=== PATIENT | female | born 1985 | race Caucasian/White ===

== ENCOUNTER → 2016-12-31 | Outpatient (CLI) | payer OTHER ==
[2016-12-31 13:20] LABS: CH 32.2; CHCM 33.5; HCT 37.7 % (34.0-46.0); HDW 2.22; HGB 12.1 gm/dL (11.4-16.0); MCH 31.1 pg (25.0-35.0); MCHC 32.2 g/dL (31.0-37.0); MCV 96.6 fL (80.0-100.0); Mean Platelet Volume 7.6; RBC 3.91 m/uL (3.80-5.40); RDW 13.9 % (11.5-15.5); WBC 5.5 k/uL (3.8-10.6)
[2016-12-31 14:01] LABS: Glucose 79 mg/dL (74-99); Non-African American GFR(MDRD) >60 (>60 ml/min/1.73 sqM)
[2016-12-31 14:15] LABS: Hepatitis B Surface Ag Index 0.06
[2016-12-31 18:59] LABS: Treponemal Ab Non-Reactive (Non-Reactive)
== END | disposition home or self-care (01) ==
LOC: LABWHC1 12:37
PROVIDERS: ATTEND Obstetrics & Gynecology
DX: O26.811 Pregnancy related exhaustion and fatigue, first trimester (principal); Z3A.00 Weeks of gestation of pregnancy not specified
CPT/HCPCS: 36415; 82565; 82947; 85027; 86762; 86780; 86850; 86900; 86901; 87340; 87390

== ENCOUNTER 2017-07-19 12:43 | Inpatient (IN) | payer BC, OTHER ==
[2017-07-19] MEDS ORDERED: OXYTOCIN 10 UNIT/ML 1 ML VIAL IM PRN (13:03)
[2017-07-19] MEDS ORDERED: AMPICILLIN 2,000 MG in SODIUM CHLORIDE 0.9% 100 ML IVPB STA (13:03)
[2017-07-19] MEDS ORDERED: CARBOPROST TROMETHAMINE 250 MCG/ML 1 ML AMP IM PRN (13:03)
[2017-07-19] MEDS ORDERED: METHYLERGONOVINE 0.2 MG/ML 1 ML AMP IM PRN (13:03)
[2017-07-19] MEDS ORDERED: LIDOCAINE 1% (PF) 10 MG/ML (30 ML SDV) SQ PRN (13:03)
[2017-07-19] MEDS ORDERED: TERBUTALINE 1 MG/ML VIAL SQ PRN (13:03)
[2017-07-19] MEDS ORDERED: OXYTOCIN 20 UNITS/1000 ML NS 1,000 ML IV SCH ×2 (13:15→19:00)
[2017-07-19 13:35] VITALS: BMI 36.8
[2017-07-19] MEDS: LACTATED RINGERS 1,000 ML IV SCH ×2 (13:36→16:39)
[2017-07-19 13:46] LABS: Basophils % (A) 0 %; Eosinophils # (A) 0.1 k/uL (0-0.7); Eosinophils % (A) 1 %; HCT 33.6 % (34.0-46.0); HGB 11.3 gm/dL (11.4-16.0); Lymphocytes # (A) 1.6 k/uL (1.0-4.8); Lymphocytes % (A) 19 %; MCH 30.1 pg (25.0-35.0); MCHC 33.7 g/dL (31.0-37.0); MCV 89.3 fL (80.0-100.0); Mean Platelet Volume 8.6; Monocytes # (A) 0.5 k/uL (0-1.0); Monocytes % (A) 6 %; Neutrophils # (A) 6.1 k/uL (1.3-7.7); Neutrophils % (A) 73 %; Platelet Count 220 k/uL (150-450); RBC 3.76 m/uL (3.80-5.40); RDW 13.3 % (11.5-15.5); WBC 8.4 k/uL (3.8-10.6)
[2017-07-19] MEDS ORDERED: SODIUM CHLORIDE 0.9% 100 ML BAG ONE (16:12)
[2017-07-19] MEDS ORDERED: BUPIVACAINE (PF) 0.25% 30 ML VIAL ONE (16:12)
[2017-07-19] MEDS ORDERED: fentaNYL (PF) 50 MCG/ML 5 ML AMP ONE (16:12)
[2017-07-19] MEDS ORDERED: AMPICILLIN 1,000 MG in SODIUM CHLORIDE 0.9% 50 ML IVPB SCH (17:00)
[2017-07-19] MEDS ORDERED: diphenhydrAMINE 25 MG CAP PO PRN (18:57)
[2017-07-19] MEDS ORDERED: diphenhydrAMINE 50 MG CAP PO PRN (18:57)
[2017-07-19] MEDS ORDERED: HYDROcodone/APAP 7.5-325MG 1 EACH TAB PO PRN (18:57)
[2017-07-19] MEDS ORDERED: ZOLPIDEM 5 MG TAB PO PRN (18:57)
[2017-07-19] MEDS ORDERED: ACETAMINOPHEN TAB 325 MG TAB PO PRN (18:57)
[2017-07-19] MEDS ORDERED: WITCH HAZEL 1 EACH MED..PAD TOPICAL PRN (18:57)
[2017-07-19] MEDS ORDERED: LANOLIN CREAM 5 GM TUBE TOPICAL PRN (18:57)
[2017-07-19] MEDS ORDERED: BENZOCAINE/MENTHOL SPRAY 1 GM/SPRAY AEROSOL TOPICAL PRN (18:57)
[2017-07-19] MEDS ORDERED: diphenhydrAMINE 50 MG/ML 1 ML VIAL IVP PRN ×2 (18:57)
[2017-07-19] MEDS ORDERED: HYDROCORTISONE 2.5% RECTAL CREAM 30 GM TUBE RECTAL PRN (18:57)
[2017-07-19] MEDS ORDERED: SIMETHICONE 80 MG CHEWABLE PO PRN (18:57)
[2017-07-19] MEDS: IBUPROFEN 600 MG TAB PO PRN (19:33)
[2017-07-19] MEDS: SENNOSIDES-DOCUSATE SODIUM 1 EACH TAB PO SCH (21:49)
[2017-07-20] MEDS: IBUPROFEN 600 MG TAB PO PRN ×3 (06:27→20:28)
[2017-07-20] MEDS: SENNOSIDES-DOCUSATE SODIUM 1 EACH TAB PO SCH ×2 (08:03→20:29)
--- NOTE | 2017-07-20 08:09 | P.HPOB ---
History of Present Illness H&P Date: 07/19/17 Chief Complaint: SROM 32 year old presents at 38 weeks 6 days with SROM at 1230pm. Her cervix is 3/80/-2 and she is not bernardo. heart tones 130-135 with moderate variability and reactive. Review of Systems All systems: negative Constitutional: Denies chills, Denies fever Eyes: denies blurred vision, denies pain Ears, nose, mouth and throat: Denies headache, Denies sore throat Cardiovascular: Denies chest pain, Denies shortness of breath Respiratory: Denies cough Gastrointestinal: Denies abdominal pain, Denies diarrhea, Denies nausea, Denies vomiting Genitourinary: Denies dysuria, Denies hematuria Musculoskeletal: Denies myalgias Integumentary: Denies pruritus, Denies rash Neurological: Denies numbness, Denies weakness Psychiatric: Denies anxiety, Denies depression Endocrine: Denies fatigue, Denies weight change Past Medical History Past Medical History: No Reported History Additional Past Medical History / Comment(s): OB history: This patient's first and she's had care with il since 10 weeks gestation. Blood type O+, antibodies negative, rubella immune, treponema antibody negative, HIV nonreactive, hepatitis B negative. The baby did have an echogenic intracardiac focus but had a normal echocardiogram. Abnormal 1 hour but normal 3 hour GTT. GBS positive. History of Any Multi-Drug Resistant Organisms: None Reported Past Surgical History: No Surgical Hx Reported Past Anesthesia/Blood Transfusion Reactions: No Reported Reaction Past Psychological History: Anxiety Smoking Status: Former smoker Past Alcohol Use History: Occasional Additional Past Alcohol Use History / Comment(s): prior to Past Drug Use History: None Reported - Past Family History Mother Family Medical History: Hypertension Medications and Allergies Home Medications Medication Instructions Recorded Confirmed Type Pnv No.95/Ferrous Fum/Folic AC 1 each PO DAILY 07/19/17 07/19/17 History [ Multivitamin Tablet] Ranitidine HCl [Zantac] 75 mg PO AC-BID 07/19/17 07/19/17 History Allergies Allergy/AdvReac Type Severity Reaction Status Date / Time No Known Allergies Allergy Verified 07/19/17 12:58 Exam Osteopathic Statement: *. No significant issues noted on an osteopathic structural exam other than those noted in the History and Physical/Consult. - Vital Signs Vital signs: Vital Signs Temp Pulse Resp BP 07/20/17 04:00 97.8 F 73 16 133/73 07/20/17 00:00 98.2 F 86 16 110/67 07/19/17 21:05 79 16 119/66 07/19/17 20:35 78 16 113/59 07/19/17 20:05 78 16 122/63 07/19/17 19:50 76 16 121/62 07/19/17 19:35 77 16 120/60 07/19/17 19:20 97.2 F L 80 16 125/62 07/19/17 19:05 80 18 135/62 07/19/17 13:25 98.1 F 70 18 136/80 Intake and Output 07/19/17 07/20/17 07/20/17 22:59 06:59 14:59 Other: # Voids 1 Heart: Regular rate and rhythm Lungs: Clear to auscultation bilaterally Abdomen: Soft, nontender Extremities: Negative Homans sign Results Result Diagrams: 07/19/17 13:35 Abnormal Lab Results - Last 24 Hours (Table) 07/19/17 Range/Units 13:35 RBC 3.76 L (3.80-5.40) m/uL Hgb 11.3 L (11.4-16.0) gm/dL Hct 33.6 L (34.0-46.0) % Assessment and Plan (1) Spontaneous rupture of membranes Current Visit: Yes Status: Acute Code(s): QVS5355 - SNOMED Code(s): 909893034 (2) Positive GBS test Current Visit: Yes Status: Acute Code(s): B95.1 - STREPTOCOCCUS, GROUP B, CAUSING DISEASES [facility]SD [facility] SNOMED Code(s): 0851659600787 Plan: 1. Admit to family place 2. Ampicillin for GBS prophylaxis 3. Pitocin augmentation 4. Anticipate normal vaginal delivery
--- NOTE | 2017-07-20 08:12 | P.PROBDLV ---
Vaginal Delivery Note - . Vaginal Delivery Note: 32-year-old presented at 38 weeks and 6 days with spontaneous rupture membranes at 12:30 PM, clear fluid noted. When she presented to labor and delivery her cervix was 3 cm dilated, 80% effaced, and -2 station. She is not bernardo. heart tones 130-135 with moderate variability and reactive. Ampicillin was started for GBS prophylaxis and Pitocin was started as well. When she was uncomfortable and making cervical change she did get an epidural. Her cervix is completely dilated at 1819. She pushed, brought the head to the perineum for several minutes but was unable to push past this, a small midline episiotomy was made in the head delivered over the perineum in OA position, anterior shoulder delivered gentle downward traction followed by posterior shoulder and rest of body at 1840. Nose and mouth bulb suctioned, cord clamped and cut, infant placed mother's abdomen. Apgars 7, 9, weight 7 lbs. 6 oz. Placenta delivered spontaneously, intact with three-vessel cord at 1842. Vagina , cervix, and perineum were inspected. Second-degree midline episiotomy was repaired with 2-0 and 3-0 Vicryl. Estimated blood loss 150 mL. Mother and baby in stable condition.
--- NOTE | 2017-07-20 08:13 | P.PNOBGVD ---
Subjective - Subjective Principal diagnosis: Status post vaginal delivery day #1 Interval history: Patient seen and examined. Denies nausea, vomiting, chest pain, shortness of breath or calf pain. Patient reports: Reports appetite normal, Reports voiding normally, Reports pain well controlled, Reports ambulating normally : doing well Objective - Latest Vital Signs Latest vital signs: Vital Signs Temp Pulse Resp BP 07/20/17 04:00 97.8 F 73 16 133/73 07/20/17 00:00 98.2 F 86 16 110/67 07/19/17 21:05 79 16 119/66 07/19/17 20:35 78 16 113/59 07/19/17 20:05 78 16 122/63 07/19/17 19:50 76 16 121/62 07/19/17 19:35 77 16 120/60 07/19/17 19:20 97.2 F L 80 16 125/62 07/19/17 19:05 80 18 135/62 07/19/17 13:25 98.1 F 70 18 136/80 Intake and Output 07/19/17 07/20/17 07/20/17 22:59 06:59 14:59 Other: # Voids 1 - Exam Lungs: bilateral: normal Chest: Normal S1, Normal S2 Extremities: Present: normal Abdomen: Present: normal appearance, soft Uterus: Present: normal, firm - Labs Labs: Abnormal Lab Results - Last 24 Hours (Table) 07/19/17 Range/Units 13:35 RBC 3.76 L (3.80-5.40) m/uL Hgb 11.3 L (11.4-16.0) gm/dL Hct 33.6 L (34.0-46.0) % Assessment and Plan (1) Spontaneous rupture of membranes Current Visit: Yes Status: Resolved Code(s): WLA8752 - SNOMED Code(s): 335199458 (2) Positive GBS test Current Visit: Yes Status: Resolved Code(s): B95.1 - STREPTOCOCCUS, GROUP B , CAUSING DISEASES CLASSD [facility] SNOMED Code(s): 3651839471293 (3) Normal vaginal delivery Current Visit: Yes Status: Acute Code(s): O80 - ENCOUNTER FOR FULL-TERM UNCOMPLICATED DELIVERY SNOMED Code(s): 08410390 Plan: 1. Continue care
[2017-07-21] MEDS: IBUPROFEN 600 MG TAB PO PRN ×2 (02:52→10:50)
[2017-07-21] MEDS: SENNOSIDES-DOCUSATE SODIUM 1 EACH TAB PO SCH (08:00)
[2017-07-21 08:19] VITALS: BP 136/81; PULSE 66; RESP 16; TEMP 98.5
--- NOTE | 2017-07-25 08:40 | P.DS ---
Providers Date of admission: 07/19/17 13:08 Expected date of discharge: 07/21/17 Attending physician: Suzi Harrison Primary care physician: Stated None - Discharge Diagnosis(es) (1) Normal vaginal delivery Status: Acute Hospital Course: Patient presented encased rupture membranes. She underwent Pitocin augmentation and did have antibiotics for GBS prophylaxis. She underwent a normal vaginal delivery. Her course was uncomplicated. She was discharged day #2 in stable condition to follow-up with me in 6 weeks. Patient Condition at Discharge: Good Plan - Discharge Summary New Discharge Prescriptions: New Ibuprofen [Motrin] 600 mg PO Q6HR PRN #30 tab PRN Reason: Mild Pain Or Fever >= 100.5 No Action Ranitidine HCl [Zantac] 75 mg PO AC-BID Pnv No.95/Ferrous Fum/Folic AC [ Multivitamin Tablet] 1 each PO DAILY Discharge Medication List Pnv No.95/Ferrous Fum/Folic AC [ Multivitamin Tablet] 1 each PO DAILY [History] Ranitidine HCl [Zantac] 75 mg PO AC-BID 07/19/17 [History] Ibuprofen [Motrin] 600 mg PO Q6HR PRN #30 tab 07/21/17 [Rx] Follow up Appointment(s)/Referral(s): Suzi Harrison DO [Doctor of Osteopathic Medicine] - 6 Weeks Discharge Disposition: HOME SELF-CARE
== END 2017-07-21 11:59 | disposition home or self-care (01) | DRG 775 ==
LOC: FBPOP 12:43 → 4FBP 13:08
PROVIDERS: ADMIT Obstetrics & Gynecology; ATTEND Obstetrics & Gynecology
PROC: 10E0XZZ Delivery of Products of Conception, External Approach (ICD-10-PCS; principal; 2017-07-19)
PROC: 0W8NXZZ Division of Female Perineum, External Approach (ICD-10-PCS; 2017-07-19)
DX: O99.824 Streptococcus B carrier state complicating childbirth (principal); O99.344 Other mental disorders complicating childbirth; F41.9 Anxiety disorder, unspecified; Z37.0 Single live birth; Z3A.38 38 weeks gestation of pregnancy; Z82.49 Family history of ischemic heart disease and other diseases of the circulatory system; Z87.891 Personal history of nicotine dependence; Z79.899 Other long term (current) drug therapy
CPT/HCPCS: 59025; 85025; 88307; 99213

== ENCOUNTER 2017-07-25 16:27 | Emergency (ER) | payer BC, OTHER ==
[2017-07-25 17:06] VITALS: RESP 18
--- NOTE | 2017-07-25 18:03 | ED ---
Extremity Problem HPI - General Chief complaint: Extremity Problem,Nontraumatic Stated complaint: Swollen feet & fever Time Seen by Provider: 07/25/17 17:40 Source: patient, RN notes reviewed Mode of arrival: ambulatory Limitations: no limitations - History of Present Illness Initial comments: This is a 32-year-old female who presents to the emergency department with chief complaint of bilateral ankle swelling. Patient states that she had a normal vaginal delivery this past Tuesday. She denies any or complications. She states that yesterday she developed a fever 101 and was shivering. She states that yesterday morning she developed bilateral lower extremity swelling that has worsened since then. She denies any calf tenderness. Denies any abnormal vaginal discharge. She does state that she does continue to have vaginal bleeding but this has decreased since delivery. Denies any pain. Denies shortness of breath or chest pain, abdominal pain, nausea or vomiting, diarrhea or constipation, dysuria or hematuria, dizziness. - Related Data Home Medications Medication Instructions Recorded Confirmed Pnv No.95/Ferrous Fum/Folic AC 1 each PO DAILY 07/19/17 07/25/17 [ Multivitamin Tablet] Acetaminophen Tab [Tylenol Tab] 1,000 mg PO Q6HR PRN 07/25/17 07/25/17 Escitalopram [Lexapro] 20 mg PO DAILY 07/25/17 07/25/17 Previous Rx's Medication Instructions Recorded Ibuprofen [Motrin] 600 mg PO Q6HR PRN #30 tab 07/21/17 Labetalol [Trandate] 100 mg PO BID #20 tablet 07/25/17 Allergies Allergy/AdvReac Type Severity Reaction Status Date / Time No Known Allergies Allergy Verified 07/25/17 17:53 Review of Systems ROS Statement: Those systems with pertinent positive or pertinent negative responses have been documented in the HPI. ROS Other: All systems not noted in ROS Statement are negative. Past Medical History Past Medical History: No Reported History Additional Past Medical History / Comment(s): OB history: Blood type O+, antibodies negative, rubella immune, treponema antibody negative, HIV nonreactive, hepatitis B negative. The baby did have an echogenic intracardiac focus but had a normal echocardiogram. Abnormal 1 hour but normal 3 hour GTT. GBS positive. History of Any Multi-Drug Resistant Organisms: None Reported Past Surgical History: No Surgical Hx Reported Past Anesthesia/Blood Transfusion Reactions: No Reported Reaction Past Psychological History: Anxiety Smoking Status: Former smoker Past Alcohol Use History: Occasional Past Drug Use History: None Reported - Past Family History Mother Family Medical History: Hypertension General Exam - General Exam Comments Initial Comments: General: Awake and alert, well-developed; in no apparent distress. HEENT: Head atraumatic, normocephalic. Pupils are equal, round and reactive to light. Extraocular movements intact. Oropharynx moist without erythema or exudate. Neck: Supple. Normal ROM. Cardiovascular: Regular rate and rhythm. No murmurs, rubs or gallops. Chest symmetrical. Respiratory: Lungs clear to auscultation bilaterally. No wheezes, rales or rhonchi. Normal respiratory effort with no use of accessory muscles. Abdomen: Soft, non-tender, non-distended. No rigidity, rebound or guarding. Normal bowel sounds in all 4 quadrants. Musculoskeletal: Normal ROM, no tenderness bilateral upper and lower extremities. No bilateral calf tenderness. There is 2+ pitting edema of right ankle and foot. 1+ pitting edema of left ankle and foot. No erythema, contusions. No tenderness. Skin: [place], warm and dry without rashes or lesions. Neurological: Alert and oriented x3. CN II-XII grossly intact. Speech is fluent and answers are appropriate. No focal neuro deficits. Psychiatric: Normal mood and affect. No overt signs of depression or anxiety noted. Limitations: no limitations Course Vital Signs 07/25/17 07/25/17 07/25/17 17:01 18:35 19:12 Temperature 98.1 F Pulse Rate 57 L 51 L 70 Respiratory 18 18 18 Rate Blood Pressure 153/81 161/89 160/83 O2 Sat by Pulse 98 96 98 Oximetry 07/25/17 20:29 Temperature 97.4 F L Pulse Rate 53 L Respiratory 18 Rate Blood Pressure 155/76 O2 Sat by Pulse 97 Oximetry - Reevaluation(s) Reevaluation #1: Case was discussed with attending physician, Dr. Sanchez. Troponin, BNP and chest x-ray are pending. Will be in contact with the patient's [employer], Dr. Harrison. 07/25/17 19:39 Medical Decision Making - Medical Decision Making This is a 32-year-old female who presented to the emergency department with chief complaint of bilateral lower extremity edema. Patient was found to has a blood pressure 153/81 on presentation. Patient is 6 days . On physical examination, there is pitting edema bilateral ankles and feet. CBC revealed a hemoglobin of 10.0 but was otherwise unremarkable. CMP was unremarkable. UA revealed trace ketones, moderate blood, large leukocyte esterase, 22 red blood cells and 14 white blood cells. Urine sent for a culture and is pending. Chest x-ray revealed no acute cardio pulmonary processes. Troponin was negative. BNP was slightly elevated at 692. Patient was given labetalol IV while in the emergency department. This case was discussed with attending physician, Dr. Sanchez who was in contact with Dr. Bush, on-call [employer]. Recommended starting patient on labetalol 100 mg twice a day and follow-up with him on Tuesday. Patient was made aware of findings and plan. She is in agreement and voices understanding. All questions were answered. - Lab Data Result diagrams: 07/25/17 18:30 07/25/17 18:30 Lab Results 07/25/17 07/25/17 07/25/17 Range/Units 18:17 18:30 18:30 WBC 6.5 (3.8-10.6) k/uL RBC 3.35 L (3.80-5.40) m/uL Hgb 10.0 L (11.4-16.0) gm/dL Hct 29.9 L (34.0-46.0) % MCV 89.4 (80.0-100.0) fL MCH 29.8 (25.0-35.0) pg MCHC 33.4 (31.0-37.0) g/dL RDW 13.3 (11.5-15.5) % Plt Count 263 (150-450) k/uL Neutrophils % 64 % Lymphocytes % 25 % Monocytes % 7 % Eosinophils % 1 % Basophils % 0 % Neutrophils # 4.2 (1.3-7.7) k/uL Lymphocytes # 1.6 (1.0-4.8) k/uL Monocytes # 0.4 (0-1.0) k/uL Eosinophils # 0.1 (0-0.7) k/uL Basophils # 0.0 (0-0.2) k/uL Sodium 140 (137-145) mmol/L Potassium 4.2 (3.5-5.1) mmol/L Chloride 107 (98-107) mmol/L Carbon Dioxide 22 (22-30) mmol/L Anion Gap 11 mmol/L BUN 13 (7-17) mg/dL Creatinine 0.60 (0.52-1.04) mg/dL Est GFR (CKD-EPI)AfAm >90 (>60 ml/min/1.73 sqM) Est GFR (CKD-EPI)NonAf >90 (>60 ml/min/1.73 sqM) Glucose 84 (74-99) mg/dL Uric Acid 4.9 (3.7-7.4) mg/dL Calcium 8.8 (8.4-10.2) mg/dL Magnesium 2.1 (1.6-2.3) mg/dL Total Bilirubin 0.3 (0.2-1.3) mg/dL AST 21 (14-36) U/L ALT 28 (9-52) U/L Alkaline Phosphatase 126 (38-126) U/L Lactate Dehydrogenase 552 (313-618) U/L Troponin I (0.000-0.034) ng/mL NT-Pro-B Natriuret Pep pg/mL Total Protein 6.1 L (6.3-8.2) g/dL Albumin 3.1 L (3.5-5.0) g/dL Urine Color Yellow Urine Appearance Clear (Clear) Urine pH 6.0 (5.0-8.0) Ur Specific [place] 1.014 (1.001-1.035) Urine Protein Negative (Negative) Urine Glucose (UA) Negative (Negative) Urine Ketones Trace H (Negative) Urine Blood Moderate H (Negative) Urine Nitrite Negative (Negative) Urine Bilirubin Negative (Negative) Urine Urobilinogen <2.0 (<2.0) mg/dL Ur Leukocyte Esterase Large H (Negative) Urine RBC 22 H (0-5) /hpf Urine WBC 14 H (0-5) /hpf Ur Squamous Epith Cells <1 (0-4) /hpf Urine Mucus Rare H (None) /hpf 07/25/17 07/25/17 Range/Units 18:30 18:30 WBC (3.8-10.6) k/uL RBC (3.80-5.40) m/uL Hgb (11.4-16.0) gm/dL Hct (34.0-46.0) % MCV (80.0-100.0) fL MCH (25.0-35.0) pg MCHC (31.0-37.0) g/dL RDW (11.5-15.5) % Plt Count (150-450) k/uL Neutrophils % % Lymphocytes % % Monocytes % % Eosinophils % % Basophils % % Neutrophils # (1.3-7.7) k/uL Lymphocytes # (1.0-4.8) k/uL Monocytes # (0-1.0) k/uL Eosinophils # (0-0.7) k/uL Basophils # (0-0.2) k/uL Sodium (137-145) mmol/L Potassium (3.5-5.1) mmol/L Chloride (98-107) mmol/L Carbon Dioxide (22-30) mmol/L Anion Gap mmol/L BUN (7-17) mg/dL Creatinine (0.52-1.04) mg/dL Est GFR (CKD-EPI)AfAm (>60 ml/min/1.73 sqM) Est GFR (CKD-EPI)NonAf (>60 ml/min/1.73 sqM) Glucose (74-99) mg/dL Uric Acid (3.7-7.4) mg/dL Calcium (8.4-10.2) mg/dL Magnesium (1.6-2.3) mg/dL Total Bilirubin (0.2-1.3) mg/dL AST (14-36) U/L ALT (9-52) U/L Alkaline Phosphatase (38-126) U/L Lactate Dehydrogenase (313-618) U/L Troponin I <0.012 (0.000-0.034) ng/mL NT-Pro-B Natriuret Pep 692 pg/mL Total Protein (6.3-8.2) g/dL Albumin (3.5-5.0) g/dL Urine Color Urine Appearance (Clear) Urine pH (5.0-8.0) Ur Specific [place] (1.001-1.035) Urine Protein (Negative) Urine Glucose (UA) (Negative) Urine Ketones (Negative) Urine Blood (Negative) Urine Nitrite (Negative) Urine Bilirubin (Negative) Urine Urobilinogen (<2.0) mg/dL Ur Leukocyte Esterase (Negative) Urine RBC (0-5) /hpf Urine WBC (0-5) /hpf Ur Squamous Epith Cells (0-4) /hpf Urine Mucus (None) /hpf - Radiology Data Radiology results: report reviewed Chest x-ray impression: No acute process. Disposition Clinical Impression: hypertension, edema Disposition: HOME SELF-CARE Condition: Good Instructions: Leg Edema (ED), Preeclampsia (ED) Additional Instructions: Please follow-up with Dr. Harrison's office on Tuesday at 1:30. Please take medications as prescribed. Please follow up with primary care provider within 1- 2 days. Return to emergency department if symptoms should worsen or any concerns arise. Prescriptions: Labetalol [Trandate] 100 mg PO BID #20 tablet Is patient prescribed a controlled substance at discharge?: No Referrals: Danielle Roberson DO [Primary Care Provider] - 1-2 days Neal Bush MD [STAFF PHYSICIAN] - 1-2 days Time of Disposition: 20:58
[2017-07-25 18:26] LABS: Appearance,Urine Clear (Clear); Bilirubin,Urine Negative (Negative); Blood,Urine Moderate (Negative); Color,Urine Yellow; Glucose,Urine (UA) Negative (Negative); Ketones,Urine Trace (Negative); Leukocyte Esterase,Urine Large (Negative); Mucus,Urine Rare /hpf; Nitrite,Urine Negative (Negative); Protein,Urine Negative (Negative); RBC,Urine 22 /hpf (0-5); Specific Gravity,Urine 1.014 (1.001-1.035); Squamous Epithelial Cell,Urine <1 /hpf (0-4); Urobilinogen,Urine <2.0 mg/dL (<2.0); WBC,Urine 14 /hpf (0-5)
[2017-07-25 18:47] LABS: Basophils % (A) 0 %; Eosinophils # (A) 0.1 k/uL (0-0.7); Eosinophils % (A) 1 %; HCT 29.9 % (34.0-46.0); Lymphocytes # (A) 1.6 k/uL (1.0-4.8); Lymphocytes % (A) 25 %; MCH 29.8 pg (25.0-35.0); MCHC 33.4 g/dL (31.0-37.0); MCV 89.4 fL (80.0-100.0); Mean Platelet Volume 7.8; Monocytes # (A) 0.4 k/uL (0-1.0); Monocytes % (A) 7 %; Neutrophils # (A) 4.2 k/uL (1.3-7.7); Neutrophils % (A) 64 %; Platelet Count 263 k/uL (150-450); RBC 3.35 m/uL (3.80-5.40); RDW 13.3 % (11.5-15.5); WBC 6.5 k/uL (3.8-10.6)
[2017-07-25 19:00] LABS: ALT 28 U/L (9-52); AST 21 U/L (14-36); Albumin 3.1 g/dL (3.5-5.0); Alkaline Phosphatase 126 U/L (38-126); Anion Gap 11 mmol/L; Blood Urea Nitrogen 13 mg/dL (7-17); Calcium 8.8 mg/dL (8.4-10.2); Carbon Dioxide 22 mmol/L (22-30); Chloride 107 mmol/L (98-107); Glucose 84 mg/dL (74-99); LDH 552 U/L (313-618); Magnesium 2.1 mg/dL (1.6-2.3); Potassium 4.2 mmol/L (3.5-5.1); Sodium 140 mmol/L (137-145); Total Bilirubin 0.3 mg/dL (0.2-1.3); Total Protein 6.1 g/dL (6.3-8.2); Uric Acid 4.9 mg/dL (3.7-7.4)
--- NOTE | 2017-07-25 20:13 | XR ---
EXAMINATION: XR chest 2V DATE AND TIME: 07/25/2017 7:52 PM ORDERING PROVIDER: Xuan Warner CLINICAL INDICATION: Pain TECHNIQUE: PA and lateral COMPARISON: None. DESCRIPTION: The overlying soft tissues are prominent. The lungs are clear. The pleural spaces are negative. The cardiac silhouette is not enlarged. The mediastinal and pleural silhouettes are unremarkable. The skeletal structures are intact without focal findings. IMPRESSION: NO ACUTE PROCESS.
[2017-07-25 20:30] VITALS: TEMP 97.4
[2017-07-25] MEDS ORDERED: LABETALOL 5 MG/ML VIAL MDV IVP STA (20:48)
[2017-07-25 21:12] VITALS: BP 148/77; PULSE 58
== END 2017-07-25 21:13 | disposition home or self-care (01) ==
LOC: EC 16:27
DX: O14.95 Unspecified pre-eclampsia, complicating the puerperium (principal); O72.1 Other immediate postpartum hemorrhage; N93.9 Abnormal uterine and vaginal bleeding, unspecified; O99.345 Other mental disorders complicating the puerperium; F41.9 Anxiety disorder, unspecified; O99.89 Other specified diseases and conditions complicating pregnancy, childbirth and the puerperium; R50.9 Fever, unspecified; Z87.891 Personal history of nicotine dependence; Z79.899 Other long term (current) drug therapy; Z82.49 Family history of ischemic heart disease and other diseases of the circulatory system
CPT/HCPCS: 36415; 71046; 80053; 81001; 83615; 83735; 83880; 84484; 84550; 85025; 87086; 96374; 99283